=== PATIENT | male | born 1950 | race Caucasian/White ===

== ENCOUNTER 2020-06-05 15:57 | Emergency (ER) | payer MEDICARE, BC ==
[~2020-06-05] VITALS: Ht 180.3 cm; Wt 94.5 kg
[2020-06-05 16:15] VITALS: BP 115/82
[2020-06-05] MEDS ORDERED: DOXYCYCLINE 100MG CAPSULE PO STA (17:16)
[2020-06-05] MEDS ORDERED: bacitracin 15gm ointment TP ONE (17:20)
[2020-06-05] MEDS ORDERED: ondansetron 4mg rapidly disintigrating tab PO ONE (17:20)
[2020-06-05] MEDS ORDERED: sulfamethoxazole/trimethoprim DS (800/160mg) tablet PO ONE (17:20)
[2020-06-05] MEDS ORDERED: HYDROcodone/acetaminophen 5mg/325mg tablet PO ONE (17:20)
[2020-06-05] MEDS ORDERED: ketorolac trometh inj. 60 MG/2 ML VIAL IM ONE (17:20)
[2020-06-05] MEDS ORDERED: DOXY100C76 PO (17:24)
[2020-06-05] MEDS ORDERED: ONDA4TAB6 PO (17:24)
[2020-06-05] MEDS ORDERED: HYDR-3965 PO (17:24)
[2020-06-05] MEDS ORDERED: SULF1TAB49 PO (17:24)
== END 2020-06-05 17:44 | disposition home or self-care (01) ==
LOC: ER 15:58
DX: L03.012 Cellulitis of left finger (principal); M79.645 Pain in left finger(s); Z79.2 Long term (current) use of antibiotics; Z79.899 Other long term (current) drug therapy
CPT/HCPCS: 96372; 99284; J1885